=== PATIENT | male | born 1940 | race African-American/Black ===

== ENCOUNTER 2020-04-04 14:24 | Inpatient (IN) | payer OTHER, MEDICARE ==
[~2020-04-04] VITALS: Ht 190.5 cm; Wt 101.2 kg
[~2020-04-04 14:24] MED LIST: ABILIFY10 MG ORAL; ACTOS30 MG ORAL; ATORVASTATIN CA40 MG ORAL; FLUOXETINE HCL20 MG ORAL; IBUPROFEN600 MG ORAL; LANTUS SOL100 UNIT/1 SUBQ; LIPITOR20 MG ORAL; LISINOPRIL10 MG ORAL; NORCO 5-325 TA1 EACH ORAL; UNOBMED
--- NOTE | 2020-04-04 14:40 | NUR ---
ED Nurse Note: Pt BIBA from home for dizziness. Pt was lying in bed and felt that he had sudden dizziness. Pt is alert and orientedx4, ambulatory. Pt has been seen by ERMD. pt is set up on monitor. Denies nausea, vomiting, diarrhea.
[2020-04-04 14:47] LABS: BASOPHILS % (AUTO) 3.4 % (0.0-2.0); EOSINOPHILS % (AUTO) 3.5 % (0.0-3.0); HEMATOCRIT 35.2 % (42.0-52.0); HEMOGLOBIN 12.1 G/DL (14.2-18.0); LYMPHOCYTES % (AUTO) 29.9 % (20.0-45.0); MEAN CORPUSCULAR VOLUME 88 FL (80-99); NEUTROPHILS % (AUTO) 54.3 % (45.0-75.0); PLATELET COUNT 236 K/UL (150-450); RED BLOOD COUNT 3.98 M/UL (4.70-6.10); RED CELL DISTRIBUTION WIDTH 11.3 % (11.6-14.8); WHITE BLOOD COUNT 4.8 K/UL (4.8-10.8)
[2020-04-04 14:50] VITALS: BP 162/89
--- NOTE | 2020-04-04 14:56 | Emergency Room Report ---
History of Present Illness General Chief Complaint: Syncope Source: Patient, EMS Present Illness HPI Patient presents with almost passing out. He is never felt this way before. Recently his doctors have decreased amount of blood pressure medicine has been taking. He still feels off kilter at this time. He has a difficult time describing how he feels. He denies dizziness in terms of the world spinning. Apparently blood sugar in the field was 162. Patient does take Lantus and is on oral medication for his diabetes He denies fever, chills, nausea, vomiting or diarrhea. He denies pain in his body at this time. Has not moved his bowels for 2 days. No sore throat, chest pain, palpitations, dysuria, abdominal pain, shortness of breath, joint pain, rashes, visual changes, headache. The patient was last admitted in 2016 with these discharge diagnoses: 1. Unresponsiveness, likely secondary to vasovagal syncope. 2. Vasovagal syncope, likely secondary to dehydration. 3. Dehydration, secondary to intractable nausea and vomiting, resolved. 4. Intractable nausea and vomiting, resolved. 5. Diabetes. 6. Hypertension. 7. Hypercholesterolemia. 8. Subclinical hyperthyroidism. Low TSH with normal free T4 and T3. Of note one of the patient's problems in the past was in fact encephalopathy. There is no medical record describing this problem. Allergies: Coded Allergies: No Known Allergies (Unverified , 07/21/15) COVID-19 Screening Contact w/high risk pt: No Experienced COVID-19 symptoms?: No COVID-19 Testing performed FINANCIAL SERVICES AGENT: No Patient History Past Medical History: see triage record Past Surgical History: other - Cervical spine surgery Social History: Reports: drug use - THC; Denies: smoking, alcohol use Social History Narrative From home -lives with his . Plays gaffney and vocals Reviewed Nursing Documentation: PMH: Agreed; PSxH: Agreed Nursing Documentation-PMH Past Medical History: No History, Except For Hx Cardiac Problems: Yes Hx Hypertension: Yes Hx Diabetes: Yes Hx Cancer: No Hx Gastrointestinal Problems: Yes Hx Neurological Problems: No Review of Systems All Other Systems: negative except mentioned in HPI Physical Exam Vital Signs Date Time Temp Pulse Resp B/P (MAP) Pulse Ox O2 Delivery O2 Flow Rate FiO2 04/04/20 14:18 98.1 56 18 165/82 (109) 99 Room Air Sp02 EP Interpretation: reviewed, normal General Appearance: well appearing, no apparent distress, GCS 15, non-toxic Head: normocephalic Eyes: bilateral eye PERRL, bilateral eye EOMI, bilateral eye conjunctivae pale ENT: moist mucus membranes Neck: supple Respiratory: lungs clear, normal breath sounds Cardiovascular #1: regular rate, rhythm Cardiovascular #2: 2+ radial (R) Gastrointestinal: normal inspection, normal bowel sounds, non tender, no mass, non-distended Musculoskeletal: back normal, normal range of motion, gait/station normal Neurologic: alert, oriented x3 Skin: no rash, warm/dry Medical Decision Making Diagnostic Impression: Primary Impression: Near syncope Additional Impressions: Hyperglycemia Polyneuropathy in diabetes Qualified Codes: E11.42 - Type 2 diabetes mellitus with diabetic polyneuropathy ER Course Patient presents with near syncope. Differential includes acute myocardial infarction, vasovagal, volume depletion, occult infection amongst others. Evaluation with EKG, chest x-ray and labs. Vital signs are normal here aside from slow heart rate. Patient placed on sales/marketing. Patient treated with IV hydration. Orthostatics ordered. EKG sinus rhythm 61 with LVH. Chest x-ray no infiltrates with prior neck surgery. CBC with normal white count, anemia which is chronic. CMP with elevated blood glucose. Troponin negative. Urinalysis negative. CT of the head no acute findings. Patient continues to feel ill. Vital signs are stable however due to the near syncopal episode patient needs admission to telemetry. Discussed with Dr. Hook. Laboratory Tests Test 04/04/20 14:35 04/04/20 15:00 White Blood Count 4.8 K/UL (4.8-10.8) Red Blood Count 3.98 M/UL (4.70-6.10) L Hemoglobin 12.1 G/DL (14.2-18.0) L Hematocrit 35.2 % (42.0-52.0) L Mean Corpuscular Volume 88 FL (80-99) Mean Corpuscular Hemoglobin 30.4 PG (27.0-31.0) Mean Corpuscular Hemoglobin Concent 34.3 G/DL (32.0-36.0) Red Cell Distribution Width 11.3 % (11.6-14.8) L Platelet Count 236 K/UL (150-450) Mean Platelet Volume 5.9 FL (6.5-10.1) L Neutrophils (%) (Auto) 54.3 % (45.0-75.0) Lymphocytes (%) (Auto) 29.9 % (20.0-45.0) Monocytes (%) (Auto) 9.0 % (1.0-10.0) Eosinophils (%) (Auto) 3.5 % (0.0-3.0) H Basophils (%) (Auto) 3.4 % (0.0-2.0) H Prothrombin Time 10.8 SEC (9.30-11.50) Prothrombin Time INR 1.0 (0.9-1.1) Sodium Level 138 MMOL/L (136-145) Potassium Level 4.4 MMOL/L (3.5-5.1) Chloride Level 104 MMOL/L (98-107) Carbon Dioxide Level 26 MMOL/L (21-32) Anion Gap 8 mmol/L (5-15) Blood Urea Nitrogen 16 mg/dL (7-18) Creatinine 1.0 MG/DL (0.55-1.30) Estimated Glomerular Filtration Rate > 60 mL/min (>60) Glucose Level 155 MG/DL (74-106) H Calcium Level 9.0 MG/DL (8.5-10.1) Total Bilirubin 0.3 MG/DL (0.2-1.0) Aspartate Amino Transferase (AST) 16 U/L (15-37) Alanine Aminotransferase (ALT) 11 U/L (12-78) L Alkaline Phosphatase 68 U/L (46-116) Total Creatine Kinase 179 U/L (26-308) Troponin I 0.002 ng/mL (0.000-0.056) C-Reactive Protein, Quantitative < 0.4 mg/dL (0.00-0.90) Pro-B-Type Natriuretic Peptide 269 pg/mL (0-125) H Total Protein 6.7 G/DL (6.4-8.2) Albumin 3.3 G/DL (3.4-5.0) L Globulin 3.4 g/dL Albumin/Globulin Ratio 1.0 (1.0-2.7) Lipase 103 U/L (73-393) Urine Color Pale yellow Urine Appearance Clear Urine pH 5 (4.5-8.0) Urine Specific [place] 1.010 (1.005-1.035) Urine Protein 2+ (NEGATIVE) H Urine Glucose (UA) Negative (NEGATIVE) Urine Ketones Negative (NEGATIVE) Urine Blood Negative (NEGATIVE) Urine Nitrite Negative (NEGATIVE) Urine Bilirubin Negative (NEGATIVE) Urine Urobilinogen Normal MG/DL (0.0-1.0) Urine Leukocyte Esterase Negative (NEGATIVE) Urine RBC 0-2 /HPF (0 - 0) H Urine WBC 0 /HPF (0 - 0) Urine Squamous Epithelial Cells None /LPF (NONE/OCC) Urine Bacteria None /HPF (NONE) EKG Diagnostic Results Troponin ordered: Yes Rate: normal Rhythm: NSR ST Segments: no acute changes - LVH Rhythm Strip Diag. Results EP Interpretation: yes Rhythm: NSR, no PVC's, no ectopy Chest X-Ray Diagnostic Results Chest X-Ray Diagnostic Results : Chest X-Ray Ordered: Yes # of Views/Limited/Complete: 1 View Indication: Other EP Interpretation: Yes Interpretation: no consolidation, no effusion, no pneumothorax, other - Cervical stabilization Impression: Other Electronically Signed by: Electronically signed by Flako Juarez MD CT/MRI/US Diagnostic Results CT/MRI/US Diagnostic Results : Imaging Test Ordered: head Impression IMPRESSION: 1. No acute intracranial abnormality. 2. Mild chronic senescent findings above. Last Vital Signs Date Time Temp Pulse Resp B/P (MAP) Pulse Ox O2 Delivery O2 Flow Rate FiO2 04/04/20 14:18 98.1 56 18 165/82 (109) 99 Room Air Status: unchanged Disposition: ADMITTED INPATIENT Condition: Serious Flako Juarez MD Apr 04, 2020 14:56
[2020-04-04 14:57] LABS: ANION GAP 8 mmol/L (5-15); BLOOD UREA NITROGEN 16 mg/dL (7-18); CARBON DIOXIDE 26 MMOL/L (21-32); CHLORIDE 104 MMOL/L (98-107); POTASSIUM 4.4 MMOL/L (3.5-5.1); SODIUM 138 MMOL/L (136-145)
[2020-04-04 15:07] LABS: ALANINE AMINOTRANSFERASE 11 U/L (12-78); ALBUMIN 3.3 G/DL (3.4-5.0); ALKALINE PHOSPHATASE 68 U/L (46-116); ASPARTATE AMINO TRANSFERASE 16 U/L (15-37); BILIRUBIN,TOTAL 0.3 MG/DL (0.2-1.0); CREATINE KINASE 179 U/L (26-308)
[2020-04-04 15:08] VITALS: BP_SYST 141; BP_SYST 146; BP_SYST 152; BP_DIAS 65; BP_DIAS 80
[2020-04-04 15:37] LABS: APPEARANCE,URINE CLEAR; BILIRUBIN, URINE NEGATIVE (NEGATIVE); COLOR,URINE PALE YELLOW; GLUCOSE, URINE (UA) NEGATIVE (NEGATIVE); KETONES,URINE NEGATIVE (NEGATIVE); LEUKOCYTE ESTERASE ,URINE NEGATIVE (NEGATIVE); NITRITE,URINE NEGATIVE (NEGATIVE); PH,URINE 5 (4.5-8.0); PROTEIN,URINE 2+ (NEGATIVE); UROBILINOGEN,URINE NORMAL MG/DL (0.0-1.0)
--- NOTE | 2020-04-04 16:34 | Diagnostic Imaging Report ---
Indication: Shortness of of breath Technique: One view of the chest Comparison: None Findings: The heart is upper limits normal in size with left ventricular hypertrophy configuration. The lungs and pleural spaces are clear. Surgical hardware is seen in the cervical spine. Impression: No acute process
[2020-04-04 17:00] VITALS: BP 148/68
--- NOTE | 2020-04-04 17:30 | Diagnostic Imaging Report ---
EXAM: CT Head Without Intravenous Contrast CLINICAL HISTORY: DIZZY TECHNIQUE: Axial computed tomography images of the head/brain without intravenous contrast. CTDI is 53 mGy and DLP is 1072 mGy-cm. One or more of the following dose reduction techniques were used: automated exposure control, adjustment of the mA and/or kV according to patient size, use of iterative reconstruction technique. COMPARISON: 07/21/2015 FINDINGS: Brain: Parenchymal volume loss. Nonspecific white matter hypoattenuation likely secondary to chronic microvascular ischemia. Cerebrovascular ASVD. No hemorrhage. Ventricles: Unremarkable. No ventriculomegaly. Bones/joints: Unremarkable. No acute fracture. Soft tissues: Unremarkable. Sinuses: Unremarkable as visualized. No acute sinusitis. Mastoid air cells: Unremarkable as visualized. No mastoid effusion. IMPRESSION: 1. No acute intracranial abnormality. 2. Mild chronic senescent findings above.
--- NOTE | 2020-04-04 19:17 | NUR ---
ED Nurse Note: Pt resting in bed, VSS no ss of distress noted. Will continue to monitor.
--- NOTE | 2020-04-04 19:17 | NUR ---
HAND-OFF: Report given to Clarisse BHAT.
[2020-04-04 19:18] VITALS: BP 149/73
--- NOTE | 2020-04-04 19:45 | NUR ---
ED Nurse Note: All medications administered, pt tolerated well no ss of distress noted. will continue to monitor.
--- NOTE | 2020-04-04 20:40 | NUR ---
ED Nurse Note: Report given to PERLITA Olivera on telemetry unit.
--- NOTE | 2020-04-04 20:50 | NUR ---
ER DISCHARGE NOTE: Patient is cleared to be discharged to telemetry unit per ERMD, pt is aox4, 99% on room air, with stable vital signs. pt was able to verbalize understanding. pt is able to ambulate with steady gait. pt took all belongings. Report given to PERLITA Olivera on telemetry unit. Pt transferred to unit with 1 RN and [address] monitor.
--- NOTE | 2020-04-04 21:34 | NUR ---
NURSE NOTES: Received report from PERLITA Robb. Patient brought up by 2 ED personnel. Patient AAOx4. able to verbalize needs. on room air saturating well. Breathing unlabored and even. No signs of acute distress or shortness of breath. No complaints of pain or discomfort at this time. Verbalized feeling lightheaded with positional change. Reminded to call for nurse for assistance. Urinal placed within reach for ease of use. residential monitor placed on patient. Placed on fall precautions. Patient's belongings accounted for and cross checked with the list, including patient's andres. Belongings placed within reach. Oriented to hospital policies and protocol. Medication history done at ED and verified. Skin assessment done: skin intact. IV on Left hand #20g; patent and flushed. Will call primary for orders. Call light placed within reach. Bed in lowest position, brakes engaged and bed alarm on. Bed rails raised x2. Will continue to monitor.
[2020-04-04] MEDS ORDERED: HYDROcodone/Acetamin 5/325 tab ORAL PRN (21:45)
[2020-04-04 22:01] VITALS: BP 160/92
--- NOTE | 2020-04-04 22:02 | NUR ---
NURSE NOTES: Called and received orders from Dr. Hook. Orders noted and carried out. No complaint of pain or discomfor at this time. Still with episodes of lightheadedness. Reminded to call nurse for assistance when needed. Bed alarm on. Will continue to monitor patient.
--- NOTE | 2020-04-04 23:22 | NUR ---
NURSE NOTES: Called and left a message with Dr. Hook regarding patient's elevated BP: 173/86. No complaints of pain, headaches, or double vision. Patient stable. Will continue to monitor. Awaiting call back.
[2020-04-05] VITALS: BP 173/86
--- NOTE | 2020-04-05 00:45 | NUR ---
NURSE NOTES: Patient seen resting, but easily arousable. No complaints of pain or discomfort at this time. Not in acute distress. Reminded to call for assistance when needing to get out of bed. Bed in lowest position, brakes engaged and bed alarm on. Bed rails raised x2. Call light placed within reach. Will continue to monitor.
[2020-04-05 04:00] VITALS: BP 166/84
[2020-04-05] MEDS: NovoLOG Insulin Flexpen SUBQ SCH ×4 (05:51→20:39)
--- NOTE | 2020-04-05 06:30 | History and Physical Report ---
DATE OF ADMISSION: 04/04/2020 HISTORY OF PRESENT ILLNESS: This is a 79-year-old male who presented with a near syncopal episode. He has been adjusting his blood pressure medications. He is a known diabetic as well. He denies any nausea, vomiting, or diarrhea. He reports constipation. There is no fever or sore throat. He has been admitted several years ago. syncope as well and dehydration. PREVIOUS SURGERIES: Spine surgery. SOCIAL HISTORY: He denies current alcohol or tobacco use. There is a history of marijuana use. HOME MEDICATIONS: Lipitor and Actos. REVIEW OF SYSTEMS: Denies any headaches, hematemesis, melena, hematochezia, or weight loss. PHYSICAL EXAMINATION: GENERAL: A 79-year-old male. HEENT: Unremarkable. LUNGS: Clear breath sounds bilaterally. ABDOMEN: Soft. EXTREMITIES: There is no edema. NEUROLOGIC: Nonfocal. VITAL SIGNS: Blood pressure 160/80, heart rate 64, respirations 18, afebrile, O2 saturation 97% on room air. LABORATORY DATA: Lab testing shows hemoglobin 12, otherwise normal CBC and BMP. Glucose 155. Troponin is negative. Coags and urinalysis negative. IMAGING STUDIES: Head CT as well as chest x-ray is negative. IMPRESSION: 1. Syncope. 2. Hypertension. 3. Diabetes mellitus. DISCUSSION: Admit/place in observation. Continue medications. We will hydrate. Hold off on antibiotics. Insulin sliding scale. Continue diabetes medications. Cardiac monitoring. We will request cardiology consultation. Stuart Hook M.D. DR: JARETH JOB#: [id number] CC:
--- NOTE | 2020-04-05 07:23 | NUR ---
NURSE HAND-OFF REPORT: Important Events on Shift:[New admit. Episodes of elevated SBP. Called Dr. Hook. Awaiting call back. Endorsed to AM nurse] Patient Status: [stable, full code] Diet: [CCHO medium] Pending Orders: [] Pending Results/Labs:[] Pending MD notification:[] Latest Vital Signs: Temperature 98.1 , Pulse 62 , B/P 166 /84 , Respiratory Rate 15 , O2 SAT 97 , Room Air, O2 Flow Rate . Vital Sign Comment: [] EKG Rhythm: Sinus Rhythm Rhythm change?: N MD Notified?: - MD Response: Latest Hernandez Fall Score: 60 Fall Risk: High Risk Safety Measures: Call light Within Reach, Bed Alarm Zone 2, Side Rails Side Rails x2, Bed position Low and Locked. Fall Precautions: Yellow Socks Yellow Gown Door Sign Patient Fall Education Report given to [PERLITA Monique].
--- NOTE | 2020-04-05 07:43 | NUR ---
NURSE NOTES: Received report from PERLITA Olivera. Pt A/O x4. No s/s of acute distress. No c/o pain and dizziness. On room air. IVF infusing on left hand, asymptomatic, patent and intact. Bed in low position, side rails up x2 and call light within reach. Will continue to monitor.
[2020-04-05 08:00] VITALS: BP 144/77
[2020-04-05 12:00] VITALS: BP 141/72
[2020-04-05 16:00] VITALS: BP 139/74
[2020-04-05] MEDS ORDERED: PRILOSEC OTC20 MG ORAL (18:05)
[2020-04-05] MEDS ORDERED: LISINOPRIL5 MG ORAL (18:05)
[2020-04-05] MEDS ORDERED: METFORMIN HCL500 M1 ORAL (18:06)
--- NOTE | 2020-04-05 19:10 | NUR ---
NURSE NOTES: Received report from PERLITA Huff. Pt in bed awake, alert oriented x4, able to make needs known. no resp distress noted. bus driver/monitor in place. IV on left hand infusing NS at 75cc/hr, no s/s infiltration noted. No c/o pain or dizziness. Bed in low position &locked. side rails up x2. Call light with in reach. Explained to pt to use call light when assistance is needed. Bed alarm on.
--- NOTE | 2020-04-05 19:16 | NUR ---
NURSE HAND-OFF REPORT: Important Events on Shift:[] Patient Status: [] Diet: [] Pending Orders: [] Pending Results/Labs:[] Pending MD notification:[] Latest Vital Signs: Temperature 97.9 , Pulse 77 , B/P 139 /74 , Respiratory Rate 18 , O2 SAT 96 , Room Air, O2 Flow Rate . Vital Sign Comment: [] EKG Rhythm: Sinus Rhythm Rhythm change?: N MD Notified?: - MD Response: Latest Hernandez Fall Score: 60 Fall Risk: High Risk Safety Measures: Call light Within Reach, Bed Alarm Zone 2, Side Rails Side Rails x2, Bed position Low and Locked. Fall Precautions: Yellow Gown Patient Fall Education Report given to [PERLITA Staley].
--- NOTE | 2020-04-05 19:59 | Cardiology Report ---
APPROVED REPORT EKG Measurement Heart [id number] NC [id number] <Conclusion> Normal sinus rhythm Left anterior fascicular block Left ventricular hypertrophy with QRS widening Junctional ST depression, probably normal Abnormal ECG
[2020-04-05 20:00] VITALS: BP 176/85
[2020-04-05] MEDS: Atorvastatin 20mg tab ORAL SCH (20:16)
--- NOTE | 2020-04-05 21:00 | NUR ---
NURSE NOTES: Notified regarding patient's b/p 176/85. No new orders at this time. No complaints of pain, headaches, or double vision. Patient stable in bed resting watching television.
[2020-04-06] VITALS: BP 159/82
--- NOTE | 2020-04-06 00:45 | Consultation ---
DATE OF CONSULTATION: 04/05/2020 CARDIOLOGY CONSULTATION CONSULTING PHYSICIAN: Flako Flores MD. REFERRING PHYSICIAN: Stuart Hook MD. REASON FOR CONSULTATION: Near syncope. HISTORY OF PRESENT ILLNESS: This is a 79-year-old male with a history of insulin-requiring diabetes mellitus, hyperlipidemia, and hypertension. He was recently started on antihypertensive therapy, notably on low dose of GIORGIO inhibitor, and in fact it was decreased subsequently. He has not had any low blood pressure readings documented, however, although his blood pressure trend was reportedly down. Over the past few days, he has been increasingly lightheaded and dizzy, and almost passing out. He has difficulty describing more clearly, but states that the symptoms are more likely to occur with him standing or bending, but not reclining. He does feel off balance, but does not feel the room spinning so to speak. His emergency room evaluation was largely unremarkable. PAST MEDICAL HISTORY: Insulin-requiring diabetes mellitus, hyperlipidemia, and hypertension. Gastroesophageal reflux disease. SOCIAL HISTORY: Nonsmoker. Occasional marijuana. No alcohol or substance abuse. MEDICATIONS: Reviewed and reconciled. FAMILY HISTORY: Noncontributory. REVIEW OF SYSTEMS: He was hospitalized here in 2016 with a vasovagal syncopal episode associated with hypovolemia, dehydration secondary to nausea and vomiting. At that time, he was noted to have borderline thyroid abnormality. All other systems are negative. PHYSICAL EXAMINATION: VITAL SIGNS: Blood pressure 165/82, pulse 56, respirations 18, and afebrile. HEENT: Conjunctivae are pink. Sclerae are anicteric. Oropharynx clear. NECK: Supple. Jugular venous pressure normal. LUNGS: Clear. CARDIAC: Regular rhythm and rate. Normal S1, S2 with a fourth heart sound. ABDOMEN: Soft, nontender. No bruits. EXTREMITIES: No edema. NEUROLOGIC: Gait is not assessed. Strength is intact and symmetric. There is no tremor or asterixis. DIAGNOSTIC DATA: CAT scan of the brain, no abnormalities. EKG, sinus rhythm at 61, left ventricular hypertrophy and left anterior superior hemiblock. Chest x-ray, no acute process. LABORATORY DATA: Troponin negative. Glucose 155. BUN 16, creatinine 1, potassium 4.4, sodium 138, bicarb 26. Pro-natriuretic peptide 269 and albumin 3.3. White count 4.8, hemoglobin 12.1, platelets 236,000. IMPRESSION: 1. Near syncope. 2. Possible BPPV. 3. Possible autonomic dysfunction. 4. Possible orthostatic symptoms. 5. History of hypertension. 6. Conduction system disease of the heart, presently does not appear to be of clinical significance. 7. Type 2 diabetes, on insulin and oral therapy. 8. History of hyperlipidemia, on statin drug. 9. Gastroesophageal reflux disease, on PPI therapy. PLAN: 1. Cardiac monitoring. 2. Check orthostatics. 3. Observe for bradyarrhythmias. 4. Metabolic profile include thyroid panel, B12, and folate. 5. Cautious hydration. 6. We will follow. Flako Flores M.D. DR: JAN JOB#: [id number] CC:
[2020-04-06 04:00] VITALS: BP 152/73
--- NOTE | 2020-04-06 05:00 | NUR ---
NURSE NOTES: Dr. albarado made aware of change in ekg rhythm.
[2020-04-06] MEDS: NovoLOG Insulin Flexpen SUBQ SCH ×4 (06:17→20:34)
--- NOTE | 2020-04-06 06:55 | NUR ---
NURSE NOTES: Pt refused morning dose of Actos stated he stopped taking medication [address] Connors made aware with new orders to d/c actos start on Glucophage. Will note & carry out.
--- NOTE | 2020-04-06 07:06 | NUR ---
NURSE HAND-OFF REPORT: Important Events on Shift:pt refused actos in am, medication changed. Patient Status: stable Diet: [employer] Pending Orders: [] Pending Results/Labs:[] Pending MD notification:[] Latest Vital Signs: Temperature 97.5 , Pulse 59 , B/P 152 /73 , Respiratory Rate 20 , O2 SAT 97 , Room Air, O2 Flow Rate . Vital Sign Comment: [] EKG Rhythm: Sinus Bradycardia Rhythm change?: Y MD Notified?: N - MD Response: Latest Hernandez Fall Score: 60 Fall Risk: High Risk Safety Measures: Call light Within Reach, Bed Alarm Zone 2, Side Rails Side Rails x2, Bed position Low and Locked. Fall Precautions: Yellow Gown Patient Fall Education Report given to PERLITA RIVERA.
--- NOTE | 2020-04-06 07:33 | NUR ---
NURSE NOTES: Pt awake/alert in bed, breathing easily on room air, denies SOB and denies pain at this time. Vital signs stable with SR @ 78 on monitor. IV access RH with NS running @ 75 ml/hr. Urinal available at bedside. Bed left in low position, side rails up x 2 and call light left near pt's hand.
[2020-04-06 07:45] VITALS: BP 146/71
[2020-04-06 08:50] LABS: CHOLESTEROL 115 MG/DL (< 200); CREATINE KINASE 105 U/L (26-308); HDL CHOLESTEROL 41 MG/DL (40-60); TRIGLYCERIDES 75 MG/DL (30-150)
[2020-04-06] MEDS ORDERED: Lisinopril 2.5mg tab ORAL SCH (09:00)
[2020-04-06] MEDS: metFORMIN 500mg tab ORAL SCH ×2 (09:13→17:56)
--- NOTE | 2020-04-06 10:16 | Diagnostic Imaging Report ---
EXAM: US Duplex Bilateral Extracranial Arteries CLINICAL HISTORY: SYNCOPE TECHNIQUE: Real-time duplex ultrasound scan of the extracranial arteries integrating B-mode two-dimensional vascular structure, Doppler spectral analysis and color flow Doppler imaging. COMPARISON: None FINDINGS: Right common carotid artery: Unremarkable. No occlusion or significant stenosis on color flow and spectral Doppler imaging. Right internal carotid artery: Peak systolic velocity in the right ICA measures 51.8 cm/s. No occlusion or significant stenosis on color flow and spectral Doppler imaging. Right external carotid artery: Unremarkable. No occlusion or significant stenosis on color flow and spectral Doppler imaging. Right vertebral artery: Right vertebral artery not visualized on this exam. Right ICA/CCA ratio: Unremarkable. Within normal limits. Left common carotid artery: Unremarkable. No occlusion or significant stenosis on color flow and spectral Doppler imaging. Left internal carotid artery: Peak systolic velocity in the left ICA measures 58.6 cm/s. No occlusion or significant stenosis on color flow and spectral Doppler imaging. Left external carotid artery: Unremarkable. No occlusion or significant stenosis on color flow and spectral Doppler imaging. Left vertebral artery: Unremarkable. Antegrade flow. Left ICA/CCA ratio: Unremarkable. Within normal limits. Lymph nodes: Unremarkable. No lymphadenopathy. Other findings: Mild atherosclerotic plaque. CAROTID STENOSIS REFERENCE USING SRU CRITERIA: Mild - <50% stenosis. ICA PSV is less than 125 cm/second and plaque or intimal thickening is visible. Moderate - 50-69% stenosis. ICA PSV is 125 to 230 cm/second and plaque is visible. Severe - 70-94% stenosis. ICA PSV is more than 230 cm/second and visible plaque with lumen narrowing is seen. Near occlusion - 95-99% stenosis. ICA PSV is variable and significant plaque with luminal narrowing is seen. Occluded - 100% stenosis. No flow identified. IMPRESSION: 1. No hemodynamically significant stenosis in either ICA. 2. Normal antegrade flow in the left vertebral artery. 3. Right vertebral artery not visualized on this exam.
--- NOTE | 2020-04-06 11:56 | Pulmonology Progress Note ---
Subjective Interval Events: Reamisn orthostatic Constitutional: Reports: no symptoms HEENT: Repors: no symptoms Respiratory: Reports: no symptoms Cardiovascular: Reports: no symptoms Allergies: Coded Allergies: No Known Allergies (Unverified , 07/21/15) Objective Last 24 Hour Vital Signs Date Time Temp Pulse Resp B/P (MAP) Pulse Ox O2 Delivery O2 Flow Rate FiO2 04/06/20 09:13 146/71 04/06/20 08:46 Room Air 04/06/20 08:00 76 04/06/20 07:45 97.9 78 16 146/71 (96) 98 04/06/20 04:00 58 04/06/20 04:00 97.5 59 20 152/73 (99) 97 04/06/20 00:00 57 04/06/20 00:00 97.5 61 20 159/82 (107) 97 04/05/20 22:42 83 76 73 04/05/20 21:00 Room Air 04/05/20 20:00 97.9 64 20 176/85 (115) 97 04/05/20 20:00 63 04/05/20 16:00 97.9 65 18 139/74 (95) 96 04/05/20 16:00 77 04/05/20 12:00 97.7 85 20 141/72 (95) 98 04/05/20 12:00 60 Intake and Output 04/05/20 04/06/20 19:00 07:00 Intake Total 480 ml 350 ml Output Total 450 ml 1000 ml Balance 30 ml -650 ml Intake Oral 480 ml 350 ml Output Urine Total 450 ml 1000 ml # Bowel Movements 1 General Appearance: no acute distress HEENT: normocephalic Respiratory: chest wall non-tender, lungs clear Cardiovascular: normal peripheral pulses, normal rate Abdomen: normal bowel sounds Laboratory Tests 04/06/20 05:55: Hemoglobin A1c 8.3H, Total Creatine Kinase 105, Triglycerides Level 75, Cholesterol Level 115, LDL Cholesterol 60, HDL Cholesterol 41, Cholesterol/HDL Ratio 2.8L, Vitamin B12 Level 456, Folate 40.2, Thyroid Stimulating Hormone (TSH) 1.390, Free Thyroxine 0.90, Triiodothyronine (T3) Uptake [Pending] 04/06/20 06:07: POC Whole Blood Glucose 178H Current Medications Medications (Trade) Dose Ordered Sig/Eduardo Route PRN Reason Start Time Stop Time Status Last Admin Dose Admin Acetaminophen/ Hydrocodone Bitart ([place] 5/325) 1 tab Q6H PRN ORAL For Pain 04/04/20 21:45 04/11/20 21:44 Atorvastatin Calcium (Lipitor) 20 mg BEDTIME ORAL 04/05/20 21:00 07/04/20 20:59 04/05/20 20:16 Dextrose (Dextrose 50%) 25 ml Q30M PRN IV Hypoglycemia 04/04/20 21:45 07/03/20 21:44 Dextrose (Dextrose 50%) 50 ml Q30M PRN IV Hypoglycemia 04/04/20 21:45 07/03/20 21:44 Insulin Aspart (NovoLOG) BEFORE MEALS AND HS SUBQ 04/05/20 06:30 07/04/20 06:29 04/06/20 06:17 Lisinopril (ZestriL) 5 mg DAILY ORAL 04/06/20 09:00 05/06/20 08:59 04/06/20 09:13 Metformin HCl (Glucophage) 1,000 mg TWICE A DAY ORAL 04/06/20 09:00 05/06/20 08:59 04/06/20 09:13 Pantoprazole (Protonix) 40 mg BEDTIME ORAL 04/05/20 21:00 05/05/20 20:59 04/05/20 20:16 Sodium Chloride 1,000 ml @ 75 mls/hr [id number] IV 04/04/20 21:45 05/04/20 21:44 04/06/20 00:31 Assessment/Plan Assessment/Plan IMPRESSION: 1. Syncope. 2. Hypertension. 3. Diabetes mellitus. 4. Orthostatic hypotension DISCUSSION: Continue medications. VIANCA Jcos VIANCA GIORGIO inhibitor Monitor BP Hydrate Consider midodrin Gisela Sanches Omar Syed MD Apr 06, 2020 11:56
[2020-04-06 12:05] VITALS: BP 153/79
[2020-04-06] MEDS: Metoprolol Tartrate 12.5mg TAB ORAL SCH ×2 (12:23→20:24)
--- NOTE | 2020-04-06 13:50 | NUR ---
CASE MANAGEMENT: Faxed clinical info (face sheet /ER MD notes/ H&P/cx report and progress notes 04-06/lab and imaging reports inc admit order) to [facility] @ F#[phone] attn: VILLA JUNG. (P#[phone]).
--- NOTE | 2020-04-06 15:54 | NUR ---
PT Note PT merline completed, treatment initiated. Patient has LE muscle weakness with c/o dizziness during sitting and standing activities. Patient is also positive for postural hypotension. Vital signs are as follows: supine 153/78, HR 60; sitting BP 156/79, HR 68; standing BP 137/78, HR 92. Patient was assisted back to supine position and BP was 159/87, HR 62. RN and MD were made aware of vital signs. Patient can benefit from PT services to increase his muscle strength and balance and teach compensatory techniques to improve his safeyt in mobility and gait. Addendum: 04/06/20 at 1555 by SARAH MARTINEZ PT Amended: Links added.
[2020-04-06 16:00] VITALS: BP 147/75
--- NOTE | 2020-04-06 17:39 | Cardiology Progress Note ---
Subjective DATE OF SERVICE: Apr 06, 2020 Does not feel dizzy today; ambulatory to the bathroom Monitor: Sinus, with episodes of asymptomatic sinus bradycardia and occasional PVC's. Carotid duplex: negative 2D Echo: normal LVEF. no significant valvular pathology. Objective Last 24 Hour Vital Signs Date Time Temp Pulse Resp B/P (MAP) Pulse Ox O2 Delivery O2 Flow Rate FiO2 04/06/20 16:03 84 04/06/20 12:23 81 156/79 04/06/20 12:13 60 68 92 04/06/20 12:05 97.8 60 16 153/79 (103) 97 04/06/20 12:00 61 04/06/20 09:13 146/71 04/06/20 08:46 Room Air 04/06/20 08:00 76 04/06/20 07:45 97.9 78 16 146/71 (96) 98 04/06/20 04:00 58 04/06/20 04:00 97.5 59 20 152/73 (99) 97 04/06/20 00:00 57 04/06/20 00:00 97.5 61 20 159/82 (107) 97 04/05/20 22:42 83 76 73 04/05/20 21:00 Room Air 04/05/20 20:00 97.9 64 20 176/85 (115) 97 04/05/20 20:00 63 ROS: no change from my initial evaluation on 04/05/20 HEENT: normal ENT inspection RHYTHM: NSR, SB, other - rare unifocal PVC LUNGS: lungs clear bilaterally CARDIAC: normal rate, regular rhythm, normal S1 and S2 ABDOMEN: normal bowel sounds, non tender, soft, no organomegaly EXTREMITIES: No edema Laboratory Tests Test 04/05/20 20:34 04/06/20 05:55 04/06/20 06:07 04/06/20 11:55 POC Whole Blood Glucose 151 MG/DL (74-106) H 178 MG/DL (74-106) H 207 MG/DL (74-106) H Hemoglobin A1c 8.3 % (4.3-6.0) H Total Creatine Kinase 105 U/L (26-308) Triglycerides Level 75 MG/DL (30-150) Cholesterol Level 115 MG/DL (< 200) LDL Cholesterol 60 mg/dL (<100) HDL Cholesterol 41 MG/DL (40-60) Cholesterol/HDL Ratio 2.8 (3.3-4.4) L Vitamin B12 Level 456 PG/ML (193-986) Folate 40.2 NG/ML (8.6-58.9) Thyroid Stimulating Hormone (TSH) 1.390 uiU/mL (0.358-3.740) Free Thyroxine 0.90 NG/DL (0.76-1.46) Triiodothyronine (T3) Uptake Pending Assessment/Plan Assessment/Plan Probable BPPV No signs of symptomatic bradycardia Hypertension/HHD with episodes of elevated BP. NIDDM Continue cardiac monitoring Check orthostatics Avoid tight BP control Continue anti-platelet therapy Consider trial of antivert Reassess Actos for diabetes in setting of cardiovascular sx's Flako Flores MD Apr 06, 2020 17:39
--- NOTE | 2020-04-06 19:24 | NUR ---
NURSE NOTES: Received report from PERLITA White. Pt in bed awake, alert oriented x4, able to make needs known. No resp distress noted. desk monitor in place. IV on right hand infusing NS at 75cc/hr, no s/s infiltration noted. No c/o pain or dizziness. Bed in low position &locked. side rails up x2. Call light with in reach. Explained to pt to use call light when assistance is needed. Bed alarm on.
[2020-04-06 20:00] VITALS: BP 169/87
[2020-04-06] MEDS: Atorvastatin 20mg tab ORAL SCH (20:23)
[2020-04-07] VITALS: BP 158/70
[2020-04-07 04:00] VITALS: BP 144/75
[2020-04-07] MEDS: NovoLOG Insulin Flexpen SUBQ SCH (06:40)
--- NOTE | 2020-04-07 07:26 | NUR ---
NURSE HAND-OFF REPORT: Important Events on Shift:n/a Patient Status: stable Diet: CCHO MEDIUM Pending Orders: [] Pending Results/Labs:[] Pending MD notification:[] Latest Vital Signs: Temperature 98.4 , Pulse 65 , B/P 144 /75 , Respiratory Rate 17 , O2 SAT 97 , Room Air, O2 Flow Rate . Vital Sign Comment: [] EKG Rhythm: Sinus Rhythm Rhythm change?: Y MD Notified?: N - MD Response: Latest Hernandez Fall Score: 70 Fall Risk: High Risk Safety Measures: Call light Within Reach, Bed Alarm Zone 2, Side Rails Side Rails x2, Bed position Low and Locked. Fall Precautions: [place] Patient Fall Education Report given to PERLITA Trujillo.
--- NOTE | 2020-04-07 07:45 | NUR ---
NURSE NOTES: Pt is AOx4 and awake eating breakfast in bed. No resp distress noted. director trust noted SR. IV on right hand infusing NS at 75cc/hr, no s/s infiltration noted. No c/o pain or dizziness. Bed in low position &locked. side rails up x2. Call light with in reach. Explained to pt to use call light when assistance is needed. Bed alarm o
[2020-04-07 08:00] VITALS: BP 159/88
--- NOTE | 2020-04-07 08:01 | NUR ---
CASE MANAGEMENT:REVIEW BIBA FROM HOME CC: DIZZINESS. SI: NEAR SYNCOPE. HYPERGLYCEMIA 98.1 56 18 165/82 99% ON RA H/H-12.1/35.2 GLUCOSE+155 IS: 1L NS BOLUS CXR : TO TELEMETRY UNIT PLAN: CT HEAD CAROTID DUPLEX 2DECHO NEURO CHECKS PER PROTOCOL PT RODNEY
--- NOTE | 2020-04-07 08:06 | NUR ---
CASE MANAGEMENT:REVIEW 04/07/20 SI: NEAR SYNCOPE 9
--- NOTE | 2020-04-07 08:09 | NUR ---
CASE MANAGEMENT:REVIEW 04/07/20 SI: NEAR SYNCOPE 98.4 63 17 144/75 97% ON RA GLUCOSE+180 IS: LOPRESSOR PO Q12 METFORMIN PO BID PROTONIX PO QHS LIPITOR PO QHS IVF@75/hr : TELEMETRY STATUS DCP: FROM HOME PLAN: CAROTID (-) PT EVAL ~ STAND BY ASSIST W/WALKER ECHO ~ EF 60z%
--- NOTE | 2020-04-07 08:18 | Cardiology Report ---
APPROVED REPORT EXAM: Two-dimensional and M-mode echocardiogram with Doppler and color Doppler. INDICATION Dizziness and Vertigo M-Mode DIMENSIONS IVSd0.9 (0.7-1.1cm)Left Atrium (MM)3.5 (1.6-4.0cm) LVDd5.6 (3.5-5.6cm)Aortic Root3.5 (2.0-3.7cm) PWd0.9 (0.7-1.1cm)Aortic Cusp Exc.2.0 (1.5-2.0cm) IVSs2.6 cmEPSS1.0 (>1.0cm) LVDs3.2 (2.5-4.0cm) PWs1.6 cm <Conclusion> Technically difficult study due to poor acoustic windows. Study quality precludes accurate assessment of regional wall motion. Normal left ventricular chamber size, systolic function and wall motion. Left ventricular ejection fraction estimated to be 60 %. No evidence of left ventricular hypertrophy. No evidence of pericardial effusion. All other cardiac chamber sizes are within normal limits. Focal aortic valve sclerosis with adequate cusp excursion. Thickened mitral valve leaflets with normal excursion. Mitral annulus and aortic root calcification. Pulmonic valve not well visualized. Normal tricuspid valve structure. IVC is normal in size with physiological collapse. A color flow and spectral Doppler study was performed and revealed: No aortic regurgitation. No mitral regurgitation. Mitral diastolic velocities suggest mild left ventricular diastolic dysfunction (Grade I). Trace tricuspid regurgitation. Tricuspid systolic velocities suggests peak right ventricular systolic pressure of 21 mmHg. Trace pulmonic regurgitation present.
[2020-04-07 08:26] VITALS: BP 159/88
[2020-04-07] MEDS: Metoprolol Tartrate 12.5mg TAB ORAL SCH (08:26)
[2020-04-07] MEDS: metFORMIN 500mg tab ORAL SCH (08:27)
--- NOTE | 2020-04-07 08:55 | Pulmonology Progress Note ---
Subjective Interval Events: No longer orthostatic; no longer dizzy Constitutional: Reports: no symptoms HEENT: Repors: no symptoms Respiratory: Reports: no symptoms Cardiovascular: Reports: no symptoms Allergies: Coded Allergies: No Known Allergies (Unverified , 07/21/15) Objective Last 24 Hour Vital Signs Date Time Temp Pulse Resp B/P (MAP) Pulse Ox O2 Delivery O2 Flow Rate FiO2 04/07/20 08:26 78 159/88 04/07/20 08:25 Room Air 04/07/20 08:00 96.2 78 20 159/88 (111) 97 04/07/20 04:00 98.4 63 17 144/75 (98) 97 04/07/20 04:00 65 04/07/20 00:00 62 04/07/20 00:00 96.4 68 17 158/70 (99) 96 04/06/20 22:30 65 69 86 04/06/20 21:00 Room Air 04/06/20 20:24 57 169/87 04/06/20 20:00 99.1 57 18 169/87 (114) 97 04/06/20 20:00 58 04/06/20 16:03 84 04/06/20 16:00 97.7 67 16 147/75 (99) 96 04/06/20 12:23 81 156/79 04/06/20 12:13 60 68 92 04/06/20 12:05 97.8 60 16 153/79 (103) 97 04/06/20 12:00 61 04/06/20 09:13 146/71 Intake and Output 04/06/20 04/07/20 19:00 07:00 Intake Total 420 ml Output Total 1100 ml Balance 420 ml -1100 ml Intake Oral 420 ml Output Urine Total 1100 ml # Voids 2 # Bowel Movements 1 General Appearance: no acute distress HEENT: normocephalic Respiratory: chest wall non-tender, lungs clear Cardiovascular: normal peripheral pulses, normal rate Abdomen: normal bowel sounds Laboratory Tests 04/06/20 11:55: POC Whole Blood Glucose 207H 04/06/20 20:32: POC Whole Blood Glucose 162H 04/07/20 06:35: POC Whole Blood Glucose 180H Current Medications Medications (Trade) Dose Ordered Sig/Eduardo Route PRN Reason Start Time Stop Time Status Last Admin Dose Admin Acetaminophen/ Hydrocodone Bitart ([place] 5/325) 1 tab Q6H PRN ORAL For Pain 04/04/20 21:45 04/11/20 21:44 Atorvastatin Calcium (Lipitor) 20 mg BEDTIME ORAL 04/05/20 21:00 07/04/20 20:59 04/06/20 20:23 Dextrose (Dextrose 50%) 25 ml Q30M PRN IV Hypoglycemia 04/04/20 21:45 07/03/20 21:44 Dextrose (Dextrose 50%) 50 ml Q30M PRN IV Hypoglycemia 04/04/20 21:45 07/03/20 21:44 Insulin Aspart (NovoLOG) BEFORE MEALS AND HS SUBQ 04/05/20 06:30 07/04/20 06:29 04/07/20 06:40 Metformin HCl (Glucophage) 1,000 mg TWICE A DAY ORAL 04/06/20 09:00 05/06/20 08:59 04/07/20 08:27 Metoprolol Tartrate (Lopressor) 12.5 mg Q12HR ORAL 04/06/20 12:15 07/05/20 12:14 04/07/20 08:26 Pantoprazole (Protonix) 40 mg BEDTIME ORAL 04/05/20 21:00 05/05/20 20:59 04/06/20 20:23 Sodium Chloride 1,000 ml @ 75 mls/hr [id number] IV 04/04/20 21:45 05/04/20 21:44 04/07/20 03:11 Assessment/Plan Assessment/Plan IMPRESSION: 1. Syncope. 2. Hypertension. 3. Diabetes mellitus. 4. Orthostatic hypotension; resolved DISCUSSION: Continue medications. DC Actos DC GIORGIO inhibitor Monitor BP Now on beta kenzie WIll dc IV fluids DC home Gisela Sanches Omar Syed MD Apr 07, 2020 08:55
[2020-04-07] MEDS ORDERED: LOPRESSOR25 M1 ORAL (08:57)
--- NOTE | 2020-04-07 11:54 | NUR ---
NURSE NOTES: Iv removed. perscription given, discharge instructions given
--- NOTE | 2020-04-08 00:25 | Cardiology Progress Note ---
Subjective DATE OF SERVICE: Apr 07, 2020 Does not feel dizzy today; ambulatory to the bathroom Monitor: Sinus, with episodes of asymptomatic sinus bradycardia and occasional PVC's. Carotid duplex: negative 2D Echo: normal LVEF. no significant valvular pathology. Objective Last 24 Hour Vital Signs Date Time Temp Pulse Resp B/P (MAP) Pulse Ox O2 Delivery O2 Flow Rate FiO2 04/07/20 08:26 78 159/88 04/07/20 08:25 Room Air 04/07/20 08:00 96.2 78 20 159/88 (111) 97 04/07/20 08:00 71 04/07/20 04:00 98.4 63 17 144/75 (98) 97 04/07/20 04:00 65 ROS: no change from my initial evaluation on 04/05/20 HEENT: normal ENT inspection RHYTHM: NSR, SB, other - rare unifocal PVC LUNGS: lungs clear bilaterally CARDIAC: normal rate, regular rhythm, normal S1 and S2 ABDOMEN: normal bowel sounds, non tender, soft, no organomegaly EXTREMITIES: No edema Laboratory Tests Test 04/07/20 06:35 POC Whole Blood Glucose 180 MG/DL (74-106) H Assessment/Plan Assessment/Plan Probable BPPV No signs of symptomatic bradycardia Hypertension/HHD with episodes of elevated BP. Resolved orthostatic symptoms NIDDM Avoid tight BP control - off ACEi Continue anti-platelet therapy Consider trial of antivert Agree with replacement of Flako Santos MD Apr 08, 2020 00:25
--- NOTE | 2020-04-08 10:34 | Discharge Summary ---
Discharge Summary Discharge Summary _ DATE OF ADMISSION: 04/04/2020 04/07/2020 DATE OF DISCHARGE: 04/07/2020 DISCHARGED BY: Dr. Hook REASON FOR ADMISSION: 79 years old male with past medical history of diabetes mellitus, hypertension, hypercholesterolemia, presented with near syncopal episode . Recently his doctor decreased amount of blood pressure medication he was taken . Patient still felt weak He denied fever or chills. No nausea, vomiting or diarrhea. No chest pain or shortness of breath. Upon evaluation blood pressure was 165/82. Laboratory work-up revealed no leukocytosis, hemoglobin 12.1, hematocrit 25.2. Stable electrolytes and renal parameters. Glucose 155. Stable LFT. Troponin negative , pro BNP 269. EKG revealed sinus rhythm , no acute ischemic changes. Urinalysis revealed +2 protein, no evidence of urinary tract infection . Chest x-ray demonstrated no acute cardiopulmonary pathology. CT of the head revealed no acute intracranial abnormality. Mild chronic senescent changes. In emergency department patient received a liter of fluid and admitted for further management. CONSULTANTS: log chipper operator [facility]SE: Patient admitted to telemetry floor. Patient was hydrated. Echocardiogram demonstrated preserved ejection fraction of 60%. No evidence of wall motion abnormality. No evidence of left ventricular hypertrophy. Right ventricular systolic pressure of 21. Carotid duplex revealed no hemodynamically significant stenosis. Thyroid function test within normal limits. Lipid panel stable. Telemetry showed sinus rhythm with episodes of asymptomatic sinus bradycardia in high 50s and occasional PVC. Patient had no symptoms of symptomatic bradycardia. Orthostatic symptoms resolved . Business Account Specialist recommended to avoid tight blood pressure control . Patient was off GIORGIO inhibitor , and BP was managed with beta-kenzie. Antiplatelet therapy with aspirin and statin continued. Hemoglobin A1c 8.3. Actos was discontinued due to cardiac risks associated . Patient at home to continue Metformin and long-acting Lantus. Patient will need close follow-up with his primary care provider to bring hemoglobin A1c under control. Diabetic diet and diabetic teaching provided. Patient clinically stabilized and was ready for discharge FINAL DIAGNOSES: Syncope likely due to orthostatic hypotension Orthostatic hypotension -resolved Hypertension/hypertensive heart disease [id number] diabetes mellitus Possible BPPV DISCHARGE MEDICATIONS: See Medication Reconciliation list. DISCHARGE INSTRUCTIONS: Patient was discharged home. Follow-up with a primary care provider in 1 week. I have been assigned to dictate discharge summary for this account. I was not involved in the patient's management. Nafisa Andersen NP Apr 08, 2020 10:34
== END 2020-04-07 11:24 | disposition home or self-care (01) | DRG 312 ==
LOC: EDBD 14:24 → EMR 15:05 → 2E 15:45 → EDBEDREQ 20:12
DX: I95.1 Orthostatic hypotension (principal); H81.10 Benign paroxysmal vertigo, unspecified ear; E11.65 Type 2 diabetes mellitus with hyperglycemia; E11.42 Type 2 diabetes mellitus with diabetic polyneuropathy; I11.9 Hypertensive heart disease without heart failure; Z79.4 Long term (current) use of insulin; K21.9 Gastro-esophageal reflux disease without esophagitis; E11.9 Type 2 diabetes mellitus without complications
CPT/HCPCS: 36415; 70450; 71045; 80053; 80061; 81003; 82550; 82607; 82746; 82962; 83036; 83690; 83880; 84439; 84443; 84480; 84484; 85025; 85610; 86140; 93005; 93306; 93880; 96360; 96361; 99285; J1815; J7030